=== PATIENT | male | born 1935 | race Caucasian/White ===

== ENCOUNTER → 2017-02-06 | Outpatient (CLI) | payer MEDICARE ==
--- NOTE | 2017-02-06 15:13 | PCVCIMAG ---
APPROVED REPORT Exam: Stress Echocardiogram Indication: Chest/Face pain Patient Location: Echo lab Stress Nurse: Gem Miguel RN Status: routine HR: 61 bpm Rhythm: NSR Procedure The patient underwent an Exercise Stress Test using the Ankit Protocol. Blood pressure, heart rate, and EKG were monitored. An Echocardiogram was performed by hotel maintenance technician in four stages in quad fashion. At peak stress, four selected images were obtained and placed side by side with resting images for comparison. Stress Test Details Stress Test: Exercise stress testing was performed using a Ankit protocol. HR Resting HR: 61 bpmMax Heart Rate (APMHR): 141 bpm Max HR Achieved: 126 bpmTarget HR (85% APMHR): 119 bpm % of APMHR: 89 Recovery HR: 71 bpm HR response to stress: Normal HR response to stress BP Resting BP: 132/78 mmHg Max BP: 204/78 mmHg Recovery BP: 152/86 mmHg ECG Resting ECG: Sinus arrhythmia Stress ECG: Sinus Rhythm, nonspecific ST-T abnormalities ST Change: , Non-ischemic Arrhythmia: Isolated PVCs and PACs Recovery ECG: Sinus Rhythm Recovery ST Change: Normal Recovery Arrhythmia: None Clinical Reason for Termination: Maximal effort Stress Symptoms: Dyspnea Exercise duration: 9 min 17 sec Highest Stage Achieved: Stage 4: 4.2 mph at 16% grade. Exercise capacity: 10.9 METs Overall Exercise Capacity for Age: Excellent Pre-Stress Echo The resting Echocardiogram showed normal left ventricular contractility with an estimated Ejection Fraction of about >55%. Normal wall motion in all segments on baseline images. Post-Stress Echo The stress Echocardiogram showed normal left ventricular contractility with an estimated Ejection Fraction of about 65%. Normal augmentation of wall motion in all segments on post stress images. Clinical No clinical or ECG evidence for ischemia. Conclusion Clinical Response: Non-ischemic Exercise Capacity: Average Stress ECG Response: Non-ischemic Stress Echo Images: Non-ischemic Other Information Study Quality: Good
== END | disposition home or self-care (01) ==
LOC: PCVCIMAG 11:23
PROVIDERS: ATTEND Internal Medicine Cardiovascular Disease
DX: I49.3 Ventricular premature depolarization (principal); I49.1 Atrial premature depolarization
CPT/HCPCS: 93325; 93351